=== PATIENT | male | born 1955 | race Caucasian/White ===

== ENCOUNTER 2022-12-24 05:45 | Day surgery (SDC) | payer MEDICARE ==
[2022-12-22 10:30] VITALS: BP 101/67
[~2022-12-24] VITALS: Ht 167.6 cm; Wt 61.4 kg
--- NOTE | ~2022-12-24 | OR ---
[facility] [address] [place] [address] [place], [place] [address] [place] DATE OF OPERATION: 12/24/2022 SURGEON: Sarahi Pardo MD PREOPERATIVE DIAGNOSES: 1. Carpal tunnel syndrome, left. 2. Left wrist mass. POSTOPERATIVE DIAGNOSES: 1. Carpal tunnel syndrome, left. 2. Left wrist ganglion cyst. PROCEDURE PERFORMED: Carpal tunnel release, left. UNDER TRIMMER: None. ANESTHESIA: Sadia block. TOURNIQUET TIME: 20 minutes. PROCEDURE PERFORMED: Left volar ganglion excision. TOURNIQUET TIME: 20 minutes. BRIEF HISTORY: Wilver is a 67-year-old gentleman with pain and numbness in his hand with nerve conduction studies consistent with the carpal tunnel. Risks and benefits of operative treatment were discussed with him and he elected to proceed. He did have also a small volar mass in the region where the proposed incision would be. We discussed removing that depending on what it was. He elected to proceed. DESCRIPTION OF PROCEDURE: Once consent was obtained, he was taken to the operating room. After adequate anesthesia, the hand was prepped and draped in a standard sterile fashion. A 1.5 cm PATIENT NAME: WILVER ALEJO OPERATIVE REPORT DATE OF : 53 REPORT #: [id number] PHYSICIAN: SARAHI PARDO MD PCP: LISANDRA CARLISLE MD REPORT IS CONFIDENTIAL AND NOT TO BE RELEASED WITHOUT AUTHORIZATION [address] [place] [address] Draft incision was made in the distal wrist crease, carried through the skin and subcutaneous tissue. We immediately encountered a small ganglion, this was dissected free of surrounding soft tissue and removed. Dissection was then taken down to the transverse carpal ligament. There were some remnants of palmaris longus, but not a fully defined tendon. The transverse carpal ligament was then dissected free of overlying soft tissue under loupe magnification. It was then released a cm proximally and distally to the distal extent again under direct visualization. The canal was then palpated to ensure complete release of the median nerve and was found to be completely released. The wound was copiously irrigated with normal saline, closed with 3-0 nylon and injected with 7 mL of 0.25% plain Marcaine. It was then dressed with bacitracin, Adaptic, 4 x 8s and gauze. He tolerated the procedure well. All sponge, needle, and instrument counts were correct. Sarahi Pardo MD BA/PATRICE /[id number] Copies: ~ PATIENT NAME: WILVER ALEJO OPERATIVE REPORT DATE OF : 53 REPORT #: [id number] PHYSICIAN: SARAHI PARDO MD PCP: LISANDRA CARLISLE MD REPORT IS CONFIDENTIAL AND NOT TO BE RELEASED WITHOUT AUTHORIZATION
[~2022-12-24 05:45] MED LIST: ICAPS AREDS2 C1 EACH PO; LIPITOR10 MG; MAGNESIUM400 MG PO; OSTEO BI-FLEX1 EACH PO; TYLENOL PM EXS1 EACH PO; ZESTRIL10 MG PO
[2022-12-24 05:59] VITALS: BP 138/79
[2022-12-24] MEDS ORDERED: HYDROCODON-ACE1 EA10 PO (07:28)
[2022-12-24 07:56] VITALS: BP 104/78
--- NOTE | 2022-12-24 07:58 | NUR ---
12/24/22 0758 Aisha Navas 0734 PT ARRIVED IN PACU WIDE AWAKE. L HAND ELEVATED ON PILLOWS. 0740 DC INSTRUCTIONS GIVEN. L ARM IN SLING. 0755 LEFT VIA W/C.
== END 2022-12-24 07:55 | disposition home or self-care (01) ==
LOC: DS 05:45
PROVIDERS: ATTEND Specialist
PROC: 01N50ZZ Release Median Nerve, Open Approach (ICD-10-PCS; principal; 2022-12-24 07:00)
PROC: 0MB60ZZ Excision of Left Wrist Bursa and Ligament, Open Approach (ICD-10-PCS; 2022-12-24 07:00)
DX: G56.02 Carpal tunnel syndrome, left upper limb (principal); M67.432 Ganglion, left wrist
CPT/HCPCS: 01810; J0690; J2001; J2704; J7121